=== PATIENT | female | born 1995 | race Caucasian/White ===

== ENCOUNTER 2022-04-23 03:28 | Day surgery (SDC) | payer BC ==
[2022-04-23] MEDS ORDERED: hydrALAZINE 20 MG/ML VIAL SLOW IVP PRN (04:51)
== END 2022-04-23 07:12 | disposition home or self-care (01) ==
LOC: CSHLD/OP 03:28
PROVIDERS: ATTEND Obstetrics & Gynecology
DX: O47.1 False labor at or after 37 completed weeks of gestation (principal); Z3A.37 37 weeks gestation of pregnancy; Z79.899 Other long term (current) drug therapy
CPT/HCPCS: 99282

== ENCOUNTER 2022-05-04 05:30 | Inpatient (IN) | payer BC ==
[2022-05-04] MEDS ORDERED: Butorphanol Tartrate 1 MG/ML VIAL SLOW IVP PRN (05:37)
[2022-05-04] MEDS ORDERED: Promethazine HCl 25 MG/ML VIAL IM PRN ×2 (05:37→11:52)
[2022-05-04] MEDS ORDERED: Carboprost 250 MCG/ML AMP IM PRN (05:37)
[2022-05-04] MEDS ORDERED: hydrALAZINE 20 MG/ML VIAL SLOW IVP PRN ×2 (05:37→16:40)
[2022-05-04] MEDS ORDERED: Acetaminophen 500 MG TAB PO PRN (05:37)
[2022-05-04] MEDS ORDERED: Lidocaine 1% (PF) 30 ML VIAL SC PRN (05:37)
[2022-05-04] MEDS ORDERED: Diphenoxylate HCl/Atropine Tablet PO PRN ×2 (05:37)
[2022-05-04] MEDS ORDERED: Ibuprofen 800 MG TAB PO PRN (05:37)
[2022-05-04] MEDS ORDERED: Lactated Ringer's 1,000 ML IV SCH (05:37)
[2022-05-04] MEDS ORDERED: HYDROcodone/Acetaminophen 5/325 mg Tablet PO PRN ×2 (05:37)
[2022-05-04] MEDS ORDERED: Methylergonovine 0.2 MG/ML VIAL IM PRN (05:37)
[2022-05-04] MEDS ORDERED: Misoprostol 200 MCG TAB PR PRN (05:37)
[2022-05-04] MEDS ORDERED: NS w/ Oxytocin 30 units 500 ML IV SCH ×2 (05:37)
[2022-05-04] MEDS ORDERED: Ondansetron PF 4 MG/2 ML Vial IVP PRN ×2 (05:37→11:52)
[2022-05-04 06:01] VITALS: BMI 24.5
[2022-05-04 07:05] LABS: Hemoglobin 14.3 g/dL (12.0-15.5); Mean Corpuscular Hemoglobin 34.2 pg (27.0-33.0); Mean Platelet Volume 11.3 fl (7.4-10.4); Platelet Count 256 10x3/uL (150-450); RBC Distribution Width 12.4 % (11.5-14.5); Red Blood Cell (RBC) Count 4.18 10x6/uL (3.90-5.03); White Blood Cell (WBC) Count 15.3 10x3/uL (3.5-10.5)
[2022-05-04 07:35] LABS: Syphilis Antibody Nonreactive (Nonreactive); Syphilis Antibody Index 0.03 S/CO (<1.00 Non-Reactive)
[2022-05-04 07:36] LABS: HBSAg Index 0.19 S/CO (0-0.99); Hep B Surf Ag Non-Reactive S/CO (NonReactive)
[2022-05-04 09:41] LABS: SARS-CoV-2 NAA Rapid Test Not Detected (NotDetected)
[2022-05-04] MEDS ORDERED: Fentanyl 2 mcg/Bup 0.1% Cadd 100 ML ONE (11:09)
[2022-05-04] MEDS ORDERED: ePHEDrine Sulfate 50 MG/10 ML VIAL SLOW IVP PRN (11:52)
[2022-05-04] MEDS ORDERED: Acetaminophen 325 MG TAB PO PRN (11:52)
[2022-05-04] MEDS ORDERED: Lactated Ringer's 500 ML IV PRN (11:52)
[2022-05-04] MEDS ORDERED: Moisturizing Cream (Eucerin) 113 GM JAR TOP PRN (11:52)
[2022-05-04] MEDS ORDERED: Naloxone HCl 0.4 mg/ml Vial IVP PRN ×2 (11:52)
[2022-05-04] MEDS ORDERED: diphenhydrAMINE 50 MG/ML VIAL IVP PRN (11:52)
[2022-05-04] MEDS ORDERED: Communication Order-Pharmacy FS SCH (12:00)
[2022-05-04] MEDS ORDERED: Fentanyl 2 mcg/Bupivacaine 0.1% Cassette 100 ML EPIDURAL SCH (12:00)
[2022-05-04] MEDS ORDERED: Milk Of Magnesia 30 ML UDCUP PO PRN (16:40)
[2022-05-04] MEDS ORDERED: Benzocaine-Menthol 82.5 ML CAN TOP PRN (16:40)
[2022-05-04] MEDS ORDERED: diphenhydrAMINE 25 MG CAP PO PRN (16:40)
[2022-05-04] MEDS ORDERED: traMADol HCl 50 MG TAB PO PRN (16:40)
[2022-05-04] MEDS ORDERED: Bisacodyl 10 MG SUPP PR PRN (16:40)
[2022-05-04] MEDS ORDERED: Boostrix 0.5 ML (Tdap) VIAL (>/=7 yrs of age) IM ONE (16:40)
[2022-05-04] MEDS ORDERED: Preparation H Ointment 28 GM TUBE PR PRN (16:40)
[2022-05-04] MEDS: Docusate 100 MG CAP PO SCH (21:13)
[2022-05-04] MEDS: Ibuprofen 800 MG TAB PO SCH (21:13)
[2022-05-05] MEDS: Ibuprofen 800 MG TAB PO SCH ×3 (05:42→21:57)
[2022-05-05] MEDS: Prenatal Vitamin 1 TAB PO SCH (08:37)
[2022-05-05] MEDS: Docusate 100 MG CAP PO SCH ×2 (08:37→21:57)
[2022-05-05] MEDS ORDERED: Witch Hazel-Glycerin 1 EACH JAR TOP PRN (21:34)
[2022-05-06] MEDS: Ibuprofen 800 MG TAB PO SCH (05:08)
[2022-05-06] MEDS: Prenatal Vitamin 1 TAB PO SCH (07:55)
[2022-05-06] MEDS: Docusate 100 MG CAP PO SCH (07:55)
[2022-05-06 08:00] VITALS: BP 110/60; TEMP 98.2
== END 2022-05-06 12:40 | disposition home or self-care (01) | DRG 806 ==
LOC: CSHLD 05:31 → CSHPP 18:40
PROVIDERS: ADMIT Obstetrics & Gynecology; ATTEND Obstetrics & Gynecology
PROC: 10E0XZZ Delivery of Products of Conception, External Approach (ICD-10-PCS; principal; 2022-05-04)
PROC: 0KQM0ZZ Repair Perineum Muscle, Open Approach (ICD-10-PCS; 2022-05-04)
DX: O70.1 Second degree perineal laceration during delivery (principal); O22.43 Hemorrhoids in pregnancy, third trimester; Z37.0 Single live birth; Z3A.39 39 weeks gestation of pregnancy
CPT/HCPCS: 36415; 51702; 85027; 86780; 86850; 86900; 86901; 87340; U0002